=== PATIENT | male | born 1995 | race Caucasian/White ===

== ENCOUNTER 2019-03-26 09:59 | Emergency (ER) | payer BC ==
--- NOTE | 2019-03-26 10:20 | EDM.PDOC ---
ED HPI GENERAL MEDICAL PROBLEM - General Chief Complaint: Lower Extremity Injury/Pain Stated Complaint: LEFT ANKLE PAIN Time Seen by Provider: 03/26/19 10:04 Source of Information: Reports: Patient History Limitations: Reports: No Limitations - History of Present Illness INITIAL COMMENTS - FREE TEXT/NARRATIVE: HISTORY AND PHYSICAL: History of present illness: Patient is a 24-year-old male presents to the ED today with concern of left ankle injury 1 week. Patient states he was at work when a pallet had dropped and hit the inside of his left ankle. Patient states since then he's been able to walk on his foot but does have pain doing so. Patient states he's been taking ibuprofen since the injury which does help with his pain. Patient denies any prior trauma to the ankle or any prior injury. Patient denies any health history or any other symptoms at this time Patient denies fever, chills, chest pain, shortness of breath, or cough. Denies headache, neck stiff ness, change in vision, syncope, or near syncope. Denies nausea, vomiting, abdominal pain, diarrhea, constipation, or dysuria. Has not noted any blood in urine or stool. Patient has been eating and drinking appropriately. Review of systems: As per history of present illness and below otherwise all systems reviewed and negative. Past medical history: As per history of present illness and as reviewed below otherwise noncontributory. Surgical history: As per history of present illness and as reviewed below otherwise noncontributory. Social history: See social history for further information Family history: As per history of present illness and as reviewed below otherwise noncontributory. Physical exam: General: Patient is alert, oriented, and in no acute distress. Patient sitting comfortably on exam table. HEENT: Atraumatic, normocephalic, pupils equal and reactive bilaterally, negative for conjunctival pallor or scleral icterus, mucous membranes moist, TMs normal bilaterally, throat clear, neck supple, nontender, trachea midline. No drooling or trismus noted. No meningeal signs. No hot potato voice noted. Lungs: Clear to auscultation, breath sounds equal bilaterally, chest nontender. Heart: S1S2, regular rate and rhythm without overt murmur Abdomen: Soft, nondistended, nontender. Negative for masses or hepatosplenomegaly. Negative for costovertebral tenderness. Pelvis: Stable nontender. Genitourinary: Deferred. Rectal: Deferred. Skin: Intact, warm, dry. No lesions or rashes noted. Extremities: Negative for cords or calf pain. Neurovascular unremarkable. Patient has full range of motion of the complete left lower extremity. Dorsalis pedis and posterior tibial pulses are grossly intact of the left lower extremity with capillary refill less than 2 seconds. No obvious deformity of the left lower extremity or ankle. Patient does have mild tenderness with palpation of the medial malleolus of the left ankle. Neuro: Awake, alert, oriented. Cranial nerves II through XII unremarkable. Cerebellum unremarkable. Motor and sensory unremarkable throughout. Exam nonfocal. Notes: Discussed the importance for follow-up with a primary care provider. Voices understanding and is agreeable to plan of care. Denies any further questions or concerns at this time. Diagnostics: Ankle XR Therapeutics: None Prescription: None Impression: Left ankle injury Plan: 1. Rest, ice, elevate the affected extremity. You can apply ice 15 minutes on, 15 minutes off. 2. Tylenol and/or Ibuprofen as directed for pain management or discomfort. 3. Follow up with the primary provider as discussed. Return to the ED as needed and as discussed. Definitive disposition and diagnosis as appropriate pending reevaluation and review of above. Left ankle Pain Score (Numeric/FACES): 5 - Related Data Allergies Allergy/AdvReac Type Severity Reaction Status Date / Time No Known Allergies Allergy Verified 03/26/19 10:02 Home Meds: Home Meds . [No Known Home Meds] 03/26/19 [History] Past Medical History HEENT History: Reports: None Cardiovascular History: Reports: None Respiratory History: Reports: None Gastrointestinal History: Reports: None Genitourinary History: Reports: None Musculoskeletal History: Reports: None Neurological History: Reports: None Psychiatric History: Reports: ADD, ADHD, Autism, Bipolar Endocrine/Metabolic History: Reports: None Hematologic History: Reports: None Immunologic History: Reports: None Oncologic (Cancer) History: Reports: None Dermatologic History: Reports: None - Past Surgical History Head Surgeries/Procedures: Reports: None HEENT Surgical History: Reports: Tonsillectomy Cardiovascular Surgical History: Reports: None Respiratory Surgical History: Reports: None GI Surgical History: Reports: Abdominal paracentesis Male Surgical History: Reports: None Endocrine Surgical History: Reports: None Neurological Surgical History: Reports: None Musculoskeletal Surgical History: Reports: None Oncologic Surgical History: Reports: None Dermatological Surgical History: Reports: None Social & Family History - Family History Family Medical History: Noncontributory - Tobacco Use Smoking Status *Q: Never Smoker Second Hand Smoke Exposure: No - Caffeine Use Caffeine Use: Reports: Coffee, Energy Drinks - Recreational Drug Use Recreational Drug Use: No Review of Systems - Review of Systems Review Of Systems: ROS reveals no pertinent complaints other than HPI. ED EXAM, GENERAL - Physical Exam Exam: See Below (see dictation) Course - Vital Signs Last Recorded V/S: Last Vital Signs Temp 35.9 C 03/26/19 10:03 Pulse 99 03/26/19 10:03 Resp 18 03/26/19 10:03 BP 130/79 03/26/19 10:03 Pulse Ox 96 03/26/19 10:03 Departure - Departure Time of Disposition: 11:44 Disposition: Home, Self-Care 01 Clinical Impression: Ankle injury Qualifiers: Encounter type: initial encounter Laterality: left Qualified Code(s): S99.912A - Unspecified injury of left ankle, initial encounter - Discharge Information Referrals: PCP,Unknown [Primary Care Provider] - Forms: ED Department Discharge Additional Instructions: The following information is given to patients seen in the emergency department who are being discharged to home. This information is to outline your options for follow-up care. We provide all patients seen in our emergency department with a follow-up referral. The need for follow-up, as well as the timing and circumstances, are variable depending upon the specifics of your emergency department visit. If you don't have a primary care physician on staff, we will provide you with a referral. We always advise you to contact your personal physician following an emergency department visit to inform them of the circumstance of the visit and for follow-up with them and/or the need for any referrals to a consulting specialist. The emergency department will also refer you to a specialist when appropriate. This referral assures that you have the opportunity for follow-up care with a specialist. All of these measure are taken in an effort to provide you with optimal care, which includes your follow-up. Under all circumstances we always encourage you to contact your private physician who remains a resource for coordinating your care. When calling for follow-up care, please make the office aware that this follow-up is from your recent emergency room visit. If for any reason you are refused follow-up, please contact the [facility] Emergency Department at and asked to speak to the emergency department charge nurse. [facility] [address] [place] [id number] [address] 1. Rest, ice, elevate the affected extremity. You can apply ice 15 minutes on, 15 minutes off. 2. Tylenol and/or Ibuprofen as directed for pain management or discomfort. 3. Follow up with the primary provider as discussed. Return to the ED as needed and as discussed.
--- NOTE | 2019-03-26 11:42 | CR ---
INDICATION: Left ankle pain. COMPARISON: None. Technique: Three-view study left ankle. FINDINGS: No evidence of fracture or dislocation. No bone or soft tissue abnormalities. Tibiotalar articulation is unremarkable. IMPRESSION: Negative radiographic examination of the left ankle. Dictated by Suzanne Villa MD @ Mar 26 2019 11:39AM Signed by Dr. Suzanne Villa @ Mar 26 2019 11:41AM
== END 2019-03-26 11:50 | disposition home or self-care (01) ==
LOC: MW.ED 09:59
DX: S99.912A Unspecified injury of left ankle, initial encounter (principal); W22.8XXA Striking against or struck by other objects, initial encounter
CPT/HCPCS: 73610-26-LT; 73610-LT; 99283-25